=== PATIENT | female | born 1970 | race Caucasian/White ===

== ENCOUNTER 2020-05-26 13:51 | Emergency (ER) | payer OTHER ==
[~2020-05-26 13:51] MED LIST: BACLOFEN 20MG T20 MG PO; CYCLOBENZAPRINE10 MG PO; CYMBALTA60 MG PO; FLEXERIL5 MG PO; IBUPROFEN800 MG PO; MELOXICAM15 MG PO; NAPROXEN500 MG PO; NEURONTIN400 MG PO; PERCOCET 5-3251 EACH PO; PREDNISONE 10MG10 MG PO; PREDNISONE20 MG PO; PULMICORT0.5 MG/2 M NEB; ROBAXIN500 MG PO; TESSALON PERLE100 MG PO; TRAMADOL HCL50 MG PO; TUSSIONEX PENN115 ML PO
[2020-05-26] MEDS ORDERED: NAPROXEN500 MG PO (16:18)
[2020-05-26] MEDS ORDERED: MEDROL 4MG DOSEP4 MG PO (16:18)
[2020-05-26] MEDS ORDERED: CYCLOBENZAPRINE10 MG PO (16:18)
== END 2020-05-26 16:23 | disposition home or self-care (01) ==
LOC: FER 13:51
DX: M50.122 Cervical disc disorder at C5-C6 level with radiculopathy (principal); E11.9 Type 2 diabetes mellitus without complications; I10 Essential (primary) hypertension
CPT/HCPCS: 72125; 72128; 96372; J1170; J1885

== ENCOUNTER 2020-10-15 13:08 | Emergency (ER) | payer OTHER ==
[~2020-10-15 13:08] MED LIST changes: +MEDROL 4MG DOSEP4 MG PO
[2020-10-15 16:13] LABS: BASOPHIL 0.3 % (0-2); EOSINOPHIL 0.3 % (0-5); HCT 42.4 % (37.0-47.0); LYMPHOCYTE 19.4 % (15-48); MCH 30.2 pg (25.0-31.0); MCV 91.4 fL (78.0-100.0); MONOCYTE 6.6 % (0-12); MPV 10.3 fL (6.0-9.5); NEUTROPHIL 72.9 % (41-80); NRBC 0; PLT 360 K/uL (150-400); RBC 4.64 M/uL (4.20-5.40); RDW 13.5 % (11.5-14.0)
[2020-10-15 16:40] LABS: ALBUMIN 3.9 g/dL (3.4-5.0); BILIRUBIN - TOTAL 0.3 mg/dL (0.2-1.0); BUN/CREAT RATIO (CALC) 27.1 RATIO; CREATININE 0.59 mg/dL (0.51-0.95); GLOBULIN (CALCULATION) 4.1 g/dL; MAGNESIUM 1.7 mg/dL (1.8-2.4); POTASSIUM 4.4 mmol/L (3.5-5.1)
[2020-10-15 16:44] LABS: PRO-BNP 58 pg/mL (<125)
[2020-10-15] MEDS ORDERED: ROBAXIN750 MG PO (18:46)
== END 2020-10-15 18:46 | disposition home or self-care (01) ==
LOC: FER 13:08
PROVIDERS: Emergency Medicine
DX: G89.29 Other chronic pain (principal); M54.9 Dorsalgia, unspecified; R07.89 Other chest pain; J98.11 Atelectasis; Z98.890 Other specified postprocedural states
CPT/HCPCS: 36415; 71045; 72040; 80053; 83735; 83880; 84484; 85025; 93005; J1170; J2405; J7030

== ENCOUNTER 2020-12-07 17:57 | Emergency (ER) | payer SELFPAY ==
[~2020-12-07 17:57] MED LIST changes: +ROBAXIN750 MG PO
== END 2020-12-07 20:58 | disposition left against medical advice (07) ==
LOC: FER 17:57
DX: S39.92XA Unspecified injury of lower back, initial encounter (principal); Z53.21 Procedure and treatment not carried out due to patient leaving prior to being seen by health care provider; X58.XXXA Exposure to other specified factors, initial encounter

== ENCOUNTER 2020-12-20 13:54 | Emergency (ER) | payer OTHER ==
[2020-12-20] MEDS ORDERED: CYCLOBENZAPRINE10 MG PO (14:40)
[2020-12-20] MEDS ORDERED: MOBIC7.5 MG PO (14:42)
[2020-12-20] MEDS ORDERED: MEDROL 4MG DOSEP4 MG PO (14:42)
== END 2020-12-20 14:45 | disposition home or self-care (01) ==
LOC: FER 13:54
DX: M54.42 Lumbago with sciatica, left side (principal); I10 Essential (primary) hypertension; E11.9 Type 2 diabetes mellitus without complications
CPT/HCPCS: 96372; 99283; J1100; J1885; Q0162